=== PATIENT | female | born 1980 | race Caucasian/White ===

== ENCOUNTER 2017-02-06 16:55 | Emergency (ER) | payer OTHER ==
[2017-02-06 17:08] VITALS: BP 131/94
--- NOTE | 2017-02-06 17:18 | EDM.PDOC ---
ED HPI GENERAL MEDICAL PROBLEM - General Chief Complaint: Upper Extremity Injury/Pain Stated Complaint: R WRIST PAIN Time Seen by Provider: 02/06/17 17:14 Source of Information: Reports: Patient History Limitations: Reports: No Limitations - History of Present Illness INITIAL COMMENTS - FREE TEXT/NARRATIVE: Patient is a 37-year-old female who presents to the ED complaining of right wrist pain. Patient states pain has been persistent for the past month. Un clear what caused the discomfort. She denies any fall or traumatic event. She does note that she recently moved here from [place] to work at [employer]. She has a history of carpal tunnel syndrome and also fracture to the affected wrist 2 times. There is no swelling, increased redness, increased warmth, or bruising present. Pain is worsened with flexion extension of her wrist as well as flexion and extension of her thumb. No sensory deficits noted. No other complaints at this time. 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 [No Known Home Meds] 02/06/17 [History] Social & Family History - Tobacco Use Smoking Status *Q: Current Every Day Smoker Years of Tobacco use: 23 Packs/Tins Daily: 0.5 Used Tobacco, but Quit: No Second Hand Smoke Exposure: No - Caffeine Use Caffeine Use: Reports: Coffee, Energy Drinks, Soda, Tea - Recreational Drug Use Recreational Drug Use: No Review of Systems - Review of Systems Review Of Systems: ROS reveals no pertinent complaints other than HPI. ED EXAM, GENERAL - Physical Exam Exam: See Below Exam Limited By: No Limitations General Appearance: Alert, WD/WN, No Apparent Distress Ears: Hearing Grossly Normal Nose: Normal Inspection Throat/Mouth: Normal Voice, No Airway Compromise Neck: Normal Inspection, Supple Respiratory/Chest: No Respiratory Distress, No Accessory Muscle Use Cardiovascular: Normal Peripheral Pulses, Regular Rate, Rhythm Peripheral Pulses: 2+: Radial (R) Extremities: Other (On inspection of the right wrist: No increased swelling, redness, bony abdomen that is noted. Patient has decreased active range of motion including: Flexion-extension, internal/external rotation of the wrist, and flexion-extension of her thumb. With palpation pain is to the anatomical snuffbox and also dorsal aspect of her wrist. No sensory changes noted. No other complaints to the hand and forearm or elbow.) Course - Vital Signs Last Recorded V/S: Last Vital Signs Temp 98.5 F 02/06/17 17:06 Pulse 86 02/06/17 17:06 Resp 18 02/06/17 17:06 BP 131/94 H 02/06/17 17:06 Pulse Ox 99 02/06/17 17:06 - Orders/Labs/Meds Orders: Active Orders 24 hr Category Date Time Status Wrist Comp Min 3V Rt [CR] Stat Exams 02/06/17 17:14 Taken - Re-Assessments/Exams Free Text/Narrative Re-Assessment/Exam: X-ray of the right wrist obtained with no acute bony abnormalities noted. Reviewed with Dr. Newton. Final interpretation pending. Patient has de Quervain 's tenosynovitis. Searching for a wrist splint with thumb spica splint all connected. We'll discharge patient home with instructions as documented. 02/06/17 18:15 No splint able to be found. Will provide a picture of splint to be obtained at [facility] On Wednesday. Departure - Departure Time of Disposition: 17:52 Disposition: Home, Self-Care 01 Condition: Good Clinical Impression: Wrist pain, right, De Quervain's syndrome (tenosynovitis) - Discharge Information Instructions: Cast or Splint Care, [id number] Referrals: Jomar Herrera MD [Physician] - Forms: ED Department Discharge, ED Return to Work/School Form Additional Instructions: As discussed I believe you have what we call dequervains tenosynovitis. Treatment is symptomatic care including: splinting, ice, and ibuprofen/tylenol in alternating fashion for pain. Refrain from any activities that cause worsening pain. Go to [facility] Wednesday to purchase wrist splint and thumb splint combined. Picture provided. Wear splint at all times today unless bathing or washing your hands. Utilize landon wrap until splint is purchased. Followup with Dr. Herrera Orthopedic Surgeon this coming week for reevaluation and treatment. Return to the E.D. for any new or worsening symptoms. - My Orders Last 24 Hours: My Active Orders 02/06/17 17:14 Wrist Comp Min 3V Rt [CR] Stat - Assessment/Plan Last 24 Hours: My Active Orders 02/06/17 17:14 Wrist Comp Min 3V Rt [CR] Stat
--- NOTE | 2017-02-08 10:08 | CR ---
Right wrist: Four views of the right wrist were obtained. Comparison: No prior wrist exam. Joint spaces are maintained. No fracture, dislocation or other bony abnormality is seen. Impression: 1. Nothing acute is appreciated. Diagnostic code #1
== END 2017-02-06 18:25 | disposition home or self-care (01) ==
LOC: JD.ED 16:55
DX: E34.51 Complete androgen insensitivity syndrome (principal); F17.210 Nicotine dependence, cigarettes, uncomplicated; Z91.030 Bee allergy status; Z88.2 Allergy status to sulfonamides; Z88.1 Allergy status to other antibiotic agents
CPT/HCPCS: 73110-26-RT; 73110-RT; 99283

== ENCOUNTER 2017-03-19 18:28 | Emergency (ER) | payer OTHER ==
[2017-03-19 18:40] VITALS: BP 144/125
--- NOTE | 2017-03-19 20:09 | EDM.PDOC ---
ED HPI GENERAL MEDICAL PROBLEM - General Chief Complaint: Respiratory Problem Stated Complaint: [facility] Time Seen by Provider: 03/19/17 19:17 Source of Information: Reports: Patient History Limitations: Reports: No Limitations - History of Present Illness INITIAL COMMENTS - FREE TEXT/NARRATIVE: This is a 37-year-old female. Onset of right sided chest pain sharp in nature about 11:00 this morning. 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 The pain apparently got worse until this evening when she started to have severe sharp right sided chest pain. At times it seemed to go into her shoulder but never into her neck or jaw or down her arm. She really had no nausea vomiting no shortness of breath though she felt like she was short of breath because breathing would make the sharp pain worse. She did have a little bit of a cough this evening it was mildly productive but this is the first time she's been having any coughing. No fever no chills no nausea no vomiting. She has no history of cardiac disease. When I go into the room she is holding her right chest complaining of sharp chest pain especially when she breathes deep. She has no history of DVT and no recent episodes of sudden shortness of breath or sharp chest pain until today. She denies any swelling or pain in her lower extremities. Chest Pain Score (Numeric/FACES): 8 - Related Data Allergies Allergy/AdvReac Type Severity Reaction Status Date / Time bee venom protein (honey bee) Allergy Cardiac Verified 03/19/17 18:34 Arrest sulfamethoxazole Allergy Difficulty Verified 03/19/17 18:34 [From Bactrim] Breathing trimethoprim [From Bactrim] Allergy Difficulty Verified 03/19/17 18:34 Breathing Home Meds: Home Meds . 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: 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 History: Reports: Fracture, Fibromyalgia Neurological History: Reports: Other (See Below) Other Neuro History: fibromyalgia - Infectious Disease History Infectious Disease History: Reports: Chicken Pox - Past Surgical History Female Surgical History: Reports: Section, Hysterectomy 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 Surgical History: Reports: Carpal Tunnel Social & Family History - Tobacco Use Smoking Status *Q: Current Every Day Smoker Years of Tobacco use: 23 Packs/Tins Daily: 0.5 Used Tobacco, but Quit: No Second Hand Smoke Exposure: No - Caffeine Use Caffeine Use: Reports: Coffee, Soda - Recreational Drug Use Recreational Drug Use: Yes Drug Use in Last 12 Months: No Recreational Drug Type: Reports: Marijuana/Hashish ED ROS GENERAL - Review of Systems Review Of Systems: See Below Constitutional: Denies: Fever, Chills HEENT: Reports: No Symptoms Respiratory: Reports: Shortness of Breath, Pleuritic Chest Pain, Cough Cardiovascular: Reports: Chest Pain, Lightheadedness Endocrine: Reports: No Symptoms GI/Abdominal: Denies: Abdominal Pain, Diarrhea, Nausea, Vomiting : Reports: No Symptoms 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: Reports: No Symptoms Skin: Reports: No Symptoms Neurological: Reports: No Symptoms Psychiatric: Reports: Anxiety Hematologic/Lymphatic: Reports: No Symptoms Immunologic: Reports: No Symptoms ED EXAM, GENERAL - Physical Exam Exam: See Below Exam Limited By: No Limitations General Appearance: Alert, WD/WN, Moderate Distress Eye Exam: Bilateral Eye: Normal Inspection Ears: Normal External Exam Nose: Normal Inspection Throat/Mouth: Normal Inspection, Normal Lips, Normal Voice, No Airway Compromise Head: Normocephalic Neck: Supple Respiratory/Chest: Lungs Clear, Other (Any sort of increased respiration she has sharp pain in the costochondral junction on the right side and also into the pectoralis muscle, her lungs however have no crackles no rales no rhonchi, palpation of the costochondral joint on both sides causes extreme sharp pain and gives her quite the distress) Cardiovascular: Regular Rate, Rhythm, No Murmur GI/Abdominal: Soft, Non-Tender Back Exam: Full Range of Motion Extremities: Normal Inspection, Normal Range of Motion, Non-Tender, No Pedal Edema Neurological: Alert, Oriented Psychiatric: Anxious Skin Exam: Warm, Dry EKG INTERPRETATION EKG Date: 03/19/17 Time: 21:43 EKG Interpretation Comments: EKG showed a normal sinus rhythm rate of [address] there were [address] or T-wave changes and no ischemia noted Course - Vital Signs Last Recorded V/S: Last Vital Signs Temp 98.9 F 03/19/17 18:35 Pulse 134 H 03/19/17 18:35 Resp 16 03/19/17 18:35 BP 144/125 H 03/19/17 18:35 Pulse Ox 100 03/19/17 18:35 - Orders/Labs/Meds Orders: Active Orders 24 hr Category Date Time Status EKG 12 Lead [EKG Documentation Completion] [RC] STAT Care 03/19/17 21:18 Active Chest 2V [CR] Stat Exams 03/19/17 19:45 Taken Labs: Laboratory Tests 03/19/17 03/19/17 03/19/17 Range/Units 20:00 20:00 20:00 WBC 11.66 H (3.98-10.04) K/mm3 RBC 4.50 (3.98-5.22) M/mm3 Hgb 13.2 (11.2-15.7) gm/L Hct 40.1 (34.1-44.9) % MCV 89.1 (79.4-94.8) fl MCH 29.3 (25.6-32.2) pg MCHC 32.9 (32.2-35.5) g/dl RDW Std Deviation 43.9 (36.4-46.3) fL Plt Count 352 (182-369) K/mm3 MPV 9.7 (9.4-12.3) fl Neut % (Auto) 57.3 (34.0-71.1) % Lymph % (Auto) 36.9 (19.3-51.7) % [place] % (Auto) 4.8 (4.7-12.5) % Eos % (Auto) 0.4 L (0.7-5.8) Baso % (Auto) 0.3 (0.1-1.2) % Neut # (Auto) 6.68 H (1.56-6.13) K/mm3 Lymph # (Auto) 4.30 H (1.18-3.74) K/mm3 [place] # (Auto) 0.56 H (0.24-0.36) K/mm3 Eos # (Auto) 0.05 (0.04-0.36) K/mm3 Baso # (Auto) 0.03 (0.01-0.08) K/mm3 D-Dimer, Quantitative < 0.19 L (0.19-0.59) mg/L Sodium 142 (136-145) mEq/L Potassium 4.1 (3.5-5.1) mEq/L Chloride 104 (98-107) mEq/L Carbon Dioxide 28 (21-32) mEq/L Anion Gap 14.1 (5-15) BUN 15 (7-18) mg/dL Creatinine 0.8 (0.55-1.02) mg/dL Est Cr Clr Drug Dosing 89.26 mL/min Estimated GFR (MDRD) > 60 (>60) mL/min BUN/Creatinine Ratio 18.8 H (14-18) Glucose 93 (74-106) mg/dL Calcium 9.5 (8.5-10.1) mg/dL Total Bilirubin 0.5 (0.2-1.0) mg/dL AST 18 (15-37) U/L ALT 30 (14-59) U/L Alkaline Phosphatase 114 (46-116) U/L Troponin I < 0.017 (0.00-0.056) ng/mL Total Protein 7.8 (6.4-8.2) g/dl Albumin 4.0 (3.4-5.0) g/dl Globulin 3.8 gm/dL Albumin/Globulin Ratio 1.1 (1-2) - Re-Assessments/Exams Free Text/Narrative Re-Assessment/Exam: 03/19/17 21:19 I spoke to the patient regarding the d-dimer and troponin and chest x-ray as well as the lab work all being negative for any acute findings. I will do an EKG as a baseline to make certain were not missing anything. I discussed the process of costochondritis and what it means in which he need to do for it and that she is not to be doing any heavy lifting or any excessive arm movements is going to aggravate her chest wall. She does need to follow-up with her family doctor this week for recheck. Departure - Departure Time of Disposition: 21:48 Disposition: Home, Self-Care 01 Condition: Good Clinical Impression: Costochondritis, acute, Atypical chest pain - Discharge Information Referrals: PCP,None [Primary Care Provider] - Forms: ED Department Discharge, ED Return to Work/School Form Additional Instructions: Use heat to your chest as often as you need to help with the soreness, obtained some ibuprofen or Aleve to help with the sharp pain, avoid any sort of heavy lifting or use of that right arm such as scrubbing or sweeping since I will aggravate the symptoms, gentle activity for the next few days and remember this can flare up again especially if you doing any sort of heavy lifting or scrubbing, follow-up with your family doctor later this week for recheck or return to the ER if needed - My Orders Last 24 Hours: My Active Orders 03/19/17 19:45 Chest 2V [CR] Stat 03/19/17 21:18 EKG 12 Lead [EKG Documentation Completion] [RC] STAT - Assessment/Plan Last 24 Hours: My Active Orders 03/19/17 19:45 Chest 2V [CR] Stat 03/19/17 21:18 EKG 12 Lead [EKG Documentation Completion] [RC] STAT
--- NOTE | 2017-03-21 09:55 | CR ---
Chest: Two views of the chest were obtained. Comparison: No prior chest x-ray. Heart size and mediastinum are within normal limits. Slight linear density noted within the lingula compatible with scar or discoid atelectasis. Lungs otherwise are clear. Bony structures appear within normal limits. Impression: 1. Incidental finding. Nothing acute is identified on two-view chest x-ray. Diagnostic code #2
== END 2017-03-19 22:07 | disposition home or self-care (01) ==
LOC: JD.ED 18:28
DX: M94.0 Chondrocostal junction syndrome [Tietze] (principal); F17.210 Nicotine dependence, cigarettes, uncomplicated; Z88.2 Allergy status to sulfonamides; Z88.1 Allergy status to other antibiotic agents; Z91.030 Bee allergy status
CPT/HCPCS: 36415; 71020; 71020-26; 80053; 84484; 85025; 85379; 93005; 99284; 99284-25

== ENCOUNTER 2017-07-24 13:22 | Emergency (ER) | payer OTHER ==
[2017-07-24 13:50] VITALS: BP 134/99
--- NOTE | 2017-07-24 13:54 | EDM.PDOC ---
ED HPI GENERAL MEDICAL PROBLEM - General Chief Complaint: Upper Extremity Injury/Pain Stated Complaint: RIGHT ARM PAIN Time Seen by Provider: 07/24/17 13:47 Source of Information: Reports: Patient History Limitations: Reports: No Limitations - History of Present Illness INITIAL COMMENTS - FREE TEXT/NARRATIVE: The patient presents with right arm pain. This started about 3 months ago. She has pain to the leateral elbow. 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 She denies any specific injury. Sometimes she will have numbness and tingling into her fingers in her right hand. She has no other complaints. Onset: Gradual Duration: Week(s): (3 months) Location: Reports: Upper Extremity, Right (lateral elbow) Quality: Reports: Sharp Severity: Moderate Improves with: Reports: Immobilization Worsens with: Reports: Movement Associated Symptoms: Reports: No Other Symptoms Right Elbow Pain Score (Numeric/FACES): 3 - Related Data Allergies Allergy/AdvReac Type Severity Reaction Status Date / Time bee venom protein (honey bee) Allergy Cardiac Verified 03/19/17 18:34 Arrest sulfamethoxazole Allergy Difficulty Verified 03/19/17 18:34 [From Bactrim] Breathing trimethoprim [From Bactrim] Allergy Difficulty Verified 03/19/17 18:34 Breathing Home Meds: Home Meds . 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: 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 History: Reports: Fracture, Fibromyalgia Neurological History: Reports: Other (See Below) Other Neuro History: fibromyalgia - Infectious Disease History Infectious Disease History: Reports: Chicken Pox - Past Surgical History Female Surgical History: Reports: Section, Hysterectomy 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 Surgical History: Reports: Carpal Tunnel Social & Family History - Tobacco Use Smoking Status *Q: Current Every Day Smoker Years of Tobacco use: 23 Packs/Tins Daily: 0.5 Used Tobacco, but Quit: No Second Hand Smoke Exposure: No - Caffeine Use Caffeine Use: Reports: Coffee, Soda - Recreational Drug Use Recreational Drug Use: No Drug Use in Last 12 Months: No Recreational Drug Type: Reports: Marijuana/Hashish Review of Systems - Review of Systems Review Of Systems: See Below Constitutional: Reports: No Symptoms Eyes: Reports: No Symptoms Ears: Reports: No Symptoms Nose: Reports: No Symptoms Mouth/Throat: Reports: No Symptoms Respiratory: Reports: No Symptoms Cardiovascular: Reports: No Symptoms GI/Abdominal: Reports: No Symptoms Genitourinary: Reports: No Symptoms 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: Reports: Other (Right lateral elbow pain) ED EXAM, GENERAL - Physical Exam Exam: See Below Exam Limited By: No Limitations General Appearance: Alert, No Apparent Distress Ears: Normal External Exam Nose: Normal Inspection Throat/Mouth: Normal Inspection Head: Atraumatic, Normocephalic Neck: Normal Inspection Respiratory/Chest: No Respiratory Distress Extremities: Other (Pain upon palpation to the lateral elbow. Good sensation and pulses distally.) Course - Vital Signs Last Recorded V/S: Last Vital Signs Temp 97.4 F 07/24/17 13:44 Pulse 89 07/24/17 13:44 Resp 19 07/24/17 13:44 BP 134/99 H 07/24/17 13:44 Pulse Ox 99 07/24/17 13:44 Departure - Departure Time of Disposition: 14:00 Disposition: Home, Self-Care 01 Condition: Good Clinical Impression: Lateral epicondylitis of right elbow - Discharge Information Referrals: PCP,None [Primary Care Provider] - Forms: ED Department Discharge, ED Return to Work/School Form Additional Instructions: Try ice or heat to your arm which every feels better. Take motrin or aleve as needed for pain. Get a tennis elbow band to help with the pain. Follow up with physical therapy. Please return if you are worse.
== END 2017-07-24 14:20 | disposition home or self-care (01) ==
LOC: JD.ED 13:22
DX: M77.11 Lateral epicondylitis, right elbow (principal); F17.210 Nicotine dependence, cigarettes, uncomplicated; Z91.030 Bee allergy status; Z88.2 Allergy status to sulfonamides; Z88.1 Allergy status to other antibiotic agents
CPT/HCPCS: 99282; 99283

== ENCOUNTER 2017-09-26 12:44 | Emergency (ER) | payer OTHER ==
[2017-09-26 13:00] VITALS: BP 125/84
[2017-09-26] MEDS ORDERED: Acetaminophen/HYDROcodone 325-5 MG Tab PO ONE (13:09)
[2017-09-26] MEDS ORDERED: Ibuprofen 600 MG Tab PO ONE (13:10)
--- NOTE | 2017-09-26 13:16 | EDM.PDOC ---
ED HPI GENERAL MEDICAL PROBLEM - General Chief Complaint: Upper Extremity Injury/Pain Stated Complaint: RT ELBOW INJURY Time Seen by Provider: 09/26/17 13:05 Source of Information: Reports: Patient, RN Notes Reviewed - History of Present Illness INITIAL COMMENTS - FREE TEXT/NARRATIVE: 37-year-old female comes in with severe right elbow pain. She states she was lifting about a 10 pound case of food at work when she felt a "popping sensation of the right elbow and onset of severe pain lateral and anterior aspect of elbow. She has pain with motion of the elbow. There was no blow to the arm or elbow and she did not fall. She does have history of prior tennis elbow type problems. 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: 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 History: Reports: Fracture, Fibromyalgia Neurological History: Reports: Other (See Below) Other Neuro History: fibromyalgia - Infectious Disease History Infectious Disease History: Reports: Chicken Pox - Past Surgical History Female Surgical History: Reports: Section, Hysterectomy 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 Surgical History: Reports: Carpal Tunnel Social & Family History - Tobacco Use Smoking Status *Q: Current Every Day Smoker Years of Tobacco use: 10 Packs/Tins Daily: 0.5 Used Tobacco, but Quit: No Second Hand Smoke Exposure: No - Caffeine Use Caffeine Use: Reports: Coffee, Soda - Recreational Drug Use Recreational Drug Use: No Drug Use in Last 12 Months: No Recreational Drug Type: Reports: Marijuana/Hashish Review of Systems - Review of Systems Review Of Systems: See Below Constitutional: Reports: No Symptoms Respiratory: Denies: Shortness of Breath Cardiovascular: Denies: Chest Pain GI/Abdominal: Denies: Abdominal Pain, Nausea, Vomiting 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: Reports: Joint Pain (Right elbow) Skin: Reports: No Symptoms Neurological: Denies: Numbness, Tingling ED EXAM, GENERAL - Physical Exam Exam: See Below General Appearance: Alert, Moderate Distress Head: Atraumatic Neck: Supple Respiratory/Chest: No Respiratory Distress Extremities: Other (Moderate diffuse tenderness right elbow, no visible deformity, severe pain with motion, arm shoulder forearm hand and wrist all nontender.). No: Joint Swelling Neurological: No Motor/Sensory Deficits Skin Exam: Warm, Dry, Normal Color Course - Vital Signs Last Recorded V/S: Last Vital Signs Temp 98.4 F 09/26/17 12:57 Pulse 89 09/26/17 12:57 Resp 16 09/26/17 12:57 BP 125/84 09/26/17 12:57 Pulse Ox 96 09/26/17 12:57 - Orders/Labs/Meds Orders: Active Orders 24 hr Category Date Time Status Elbow Min 3V Rt [CR] Stat Exams 09/26/17 13:19 Taken Meds: Medications Discontinued Medications Generic Name Dose Route Start Last Admin Trade Name Iesha PRN Reason Stop Dose Admin Hydrocodone Bitart/Acetaminophen 1 tab 09/26/17 13:09 09/26/17 13:54 [place] 325-5 Mg PO 09/26/17 13:10 1 tab ONETIME ONE Administration Ibuprofen 600 mg 09/26/17 13:10 09/26/17 13:53 Motrin PO 09/26/17 13:11 600 mg ONETIME ONE Administration - Re-Assessments/Exams Free Text/Narrative Re-Assessment/Exam: 09/26/17 19:54. X-rays showed no fracture. Discharge instructions as documented Departure - Departure Time of Disposition: 14:31 Disposition: Home, Self-Care 01 Condition: Fair Clinical Impression: Elbow sprain Qualifiers: Encounter type: initial encounter Laterality: right Qualified Code(s): S53.401A - Unspecified sprain of right elbow, initial encounter - Discharge Information Referrals: PCP,None [Primary Care Provider] - Forms: ED Department Discharge, ED Return to Work/School Form Additional Instructions: Chuy wrap right elbow, right arm sling, continue with intermittent ice packs, rest arm and elbow, increase activity as tolerated, alternate Tylenol and ibuprofen for mild to moderate discomfort or you may take hydrocodone if needed for more severe pain. Don't take Tylenol and hydrocodone at the same time, do not drive when taking hydrocodone. Follow-up clinic if not much better within 4 -5 days as expected. - My Orders Last 24 Hours: My Active Orders 09/26/17 13:19 Elbow Min 3V Rt [CR] Stat - Assessment/Plan Last 24 Hours: My Active Orders 09/26/17 13:19 Elbow Min 3V Rt [CR] Stat
--- NOTE | 2017-09-27 08:18 | CR ---
Right elbow: Four views of the right elbow were obtained. Comparison: No prior study. Joint spaces are preserved. No joint effusion is seen. No fracture, dislocation or other bony abnormality is seen. Impression: 1. No abnormality is identified on right elbow study. Diagnostic code #1
== END 2017-09-26 14:54 | disposition home or self-care (01) ==
LOC: JD.ED 12:44
DX: S53.401A Unspecified sprain of right elbow, initial encounter (principal); F17.210 Nicotine dependence, cigarettes, uncomplicated; Z91.030 Bee allergy status; Z88.1 Allergy status to other antibiotic agents; X50.0XXA Overexertion from strenuous movement or load, initial encounter
CPT/HCPCS: 73080; 99283; A9270

== ENCOUNTER 2019-06-30 15:34 | Emergency (ER) | payer SELFPAY ==
[2019-06-30 16:00] VITALS: BP 148/104; PULSE 110
[2019-06-30] MEDS ORDERED: Ketorolac 60 MG/2 ML SDV IM ONE (16:23)
--- NOTE | 2019-06-30 16:28 | EDM.PDOC ---
ED HPI GENERAL MEDICAL PROBLEM - General Chief Complaint: Upper Extremity Injury/Pain Stated Complaint: SLIPPED ON ICE MULTIPLE INJURIES Time Seen by Provider: 06/30/19 15:59 Source of Information: Reports: Patient, RN Notes Reviewed History Limitations: Reports: No Limitations - History of Present Illness INITIAL COMMENTS - FREE TEXT/NARRATIVE: Patient is a 39-year-old female who presents to the ED for the evaluation of multiple injuries after slip and fall on the ice. Patient states that 8 AM this morning she was walking outside, when she slipped and fell on the ice. The patient states that she hit her head on the curb, but did not have any LOC. The patient states that she is having pain in her left wrist, with some swelling on the dorsal aspect of her wrist, with pain that radiates up to her left elbow, and minor swelling noted to the inside aspect of her left elbow, just above the joint. She notes she is right-hand dominant. She states she is also having pain into her tailbone, she cannot sit directly on her butt. She took 3 tabs of Tylenol at around noon today, this did not provide much pain relief. Patient states that she has a history of fibromyalgia, and has had a hysterectomy, so denies any chance of at this time. Patient is complaining of a mild headache, but no nausea or vomiting. Left Arm Pain Score (Numeric/FACES): 9 - Related Data Allergies Allergy/AdvReac Type Severity Reaction Status Date / Time bee venom protein (honey bee) Allergy Cardiac Verified 06/30/19 16:00 Arrest sulfamethoxazole Allergy Difficulty Verified 06/30/19 16:00 [From Bactrim] Breathing trimethoprim [From Bactrim] Allergy Difficulty Verified 06/30/19 16:00 Breathing Home Meds: Home Meds Fluticasone/Salmeterol [Advair 250-50] 1 puff INH BID 06/30/19 [History] Past Medical History HEENT History: Reports: Impaired Vision Respiratory History: Reports: Asthma, Bronchitis, Recurrent, Other (See Below) Other Respiratory History: lung nodules 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: 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 History: Reports: Fracture, Fibromyalgia - Infectious Disease History Infectious Disease History: Reports: Chicken Pox - Past Surgical History Female Surgical History: Reports: Section, Hysterectomy 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 Surgical History: Reports: Carpal Tunnel Social & Family History - Family History Family Medical History: Noncontributory - Tobacco Use Smoking Status *Q: Current Every Day Smoker Years of Tobacco use: 25 Packs/Tins Daily: 0.5 - Caffeine Use Caffeine Use: Reports: Coffee, Soda - Recreational Drug Use Recreational Drug Use: No Review of Systems - Review of Systems Review Of Systems: Comprehensive ROS is negative, except as noted in HPI. Respiratory: Denies: Shortness of Breath Cardiovascular: Denies: Chest Pain 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: Reports: Arm Pain (Left wrist, elbow), Back Pain (tailbone pain ), Joint Swelling (L dorsal wrist) Neurological: Reports: Headache (mild headache). Denies: Numbness, Tingling ED EXAM, GENERAL - Physical Exam Exam: See Below Exam Limited By: No Limitations General Appearance: Alert, WD/WN, No Apparent Distress Eye Exam: Bilateral Eye: EOMI, Normal Inspection, PERRL Ears: Normal External Exam, Normal Canal, Hearing Grossly Normal, Normal TMs Nose: Normal Inspection Throat/Mouth: Normal Inspection, Normal Lips, Normal Teeth, Normal Gums, Normal Oropharynx, Normal Voice, No Airway Compromise Head: Atraumatic, Normocephalic Neck: Normal Inspection Respiratory/Chest: No Respiratory Distress, Lungs Clear, Normal Breath Sounds, No Accessory Muscle Use, Chest Non-Tender Cardiovascular: Normal Peripheral Pulses, Regular Rate, Rhythm, No Murmur Peripheral Pulses: 3+: Radial (L), Radial (R), Dorsalis Pedis (L), Dorsalis Pedis (R) GI/Abdominal: Normal Bowel Sounds, Soft, Non-Tender, No Distention, No Mass Back Exam: Normal Inspection Extremities: Normal Inspection, Normal Capillary Refill, Limited Range of Motion (of L wrist, d/t pain, 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.) Neurological: Alert, Oriented, Normal Cognition, No Motor/Sensory Deficits Psychiatric: Normal Affect, Normal Mood Skin Exam: Warm, Dry, Intact, Normal Color, No Rash Course - Vital Signs Last Recorded V/S: Last Vital Signs Temp 98.2 F 06/30/19 15:57 Pulse 110 H 06/30/19 15:57 Resp 16 06/30/19 15:57 BP 148/104 H 06/30/19 15:57 Pulse Ox 97 06/30/19 15:57 - Orders/Labs/Meds Orders: Active Orders 24 hr Category Date Time Status Forearm 2V Lt [CR] Stat Exams 06/30/19 16:22 Ordered Wrist Comp Min 3V Lt [CR] Stat Exams 06/30/19 16:22 Ordered Meds: Medications Discontinued Medications Generic Name Dose Route Start Last Admin Trade Name Iesha PRN Reason Stop Dose Admin Ketorolac Tromethamine 60 mg 06/30/19 16:23 06/30/19 16:52 Toradol IM 06/30/19 16:24 60 mg ONETIME ONE Administration - Re-Assessments/Exams Free Text/Narrative Re-Assessment/Exam: 06/30/19 16:47 Patient presents to the ED for the evaluation of multiple injuries s/p fall on the ice. I have ordered L wrist/forearm x-ray and sacrum x-rays for further evaluation. I did order 60mg IM Toradol for initial pain management. 06/30/19 17:32 Patient sacrum x-ray is back, demonstrates no fracture or bony abnormalities. I did go over the wrist and forearm x-rays with Dr. Jones, and he cannot identify any fracture abnormalities as well. The radiology read is still pending on the wrist and forearm x-rays. I will likely send the patient home with a sling if she should desire, and possibly a wrist brace. Departure - Departure Time of Disposition: 17:33 Disposition: Home, Self-Care 01 Condition: Fair Clinical Impression: Sacral pain Fall Qualifiers: Encounter type: initial encounter Qualified Code(s): W19.XXXA - Unspecified fall, initial encounter Left wrist sprain Qualifiers: Encounter type: initial encounter Qualified Code(s): S63.502A - Unspecified sprain of left wrist, initial encounter - Discharge Information *PRESCRIPTION DRUG MONITORING PROGRAM REVIEWED*: No *COPY OF PRESCRIPTION DRUG MONITORING REPORT IN PATIENT SAMANTHA: No Instructions: Wrist Sprain, Adult Referrals: Rosie Goss PA-C [Primary Care Provider] - Forms: ED Department Discharge Additional Instructions: You have been evaluated in the ED for your injuries sustained after your slip on the ice. Your x-ray demonstrated no fracture or bony abnormality identified on your sacrum / coccyx x-rays, or any fracture or bony abnormality noted on your left wrist or left forearm x-rays. Please use ice as tolerated to the affected area. Please try to elevate the affected area to relieve swelling. You may take Tylenol 500 mg or ibuprofen 600mg q6 hrs for pain relief. Please do so until you have a tolerable level of pain with activity. Do not exceed 4000mg Tylenol or 3200mg ibuprofen in a 24 hour time period. You may want to obtain a donut type pillow to provide further sitting relief over the next few days, you can get this at any retail place like [facility] or other pharmacies. Please return to ED if your symptoms should change or worsen. Sepsis Event Note - Evaluation Sepsis Screening Result: No Definite Risk - Focused Exam Vital Signs: Vital Signs Temp Pulse Resp BP Pulse Ox 06/30/19 15:57 98.2 F 110 H 16 148/104 H 97 Date Exam was Performed: 06/30/19 Time Exam was Performed: 17:32 - My Orders Last 24 Hours: My Active Orders 06/30/19 16:22 Forearm 2V Lt [CR] Stat Wrist Comp Min 3V Lt [CR] Stat - Assessment/Plan Last 24 Hours: My Active Orders 06/30/19 16:22 Forearm 2V Lt [CR] Stat Wrist Comp Min 3V Lt [CR] Stat
--- NOTE | 2019-06-30 17:15 | CR ---
Sacrum and coccyx: 3 views of the sacrum and coccyx were obtained. Comparison: No previous sacrum or coccyx study. No fracture is appreciated. Sacroiliac joints are normal. Sacral foramina are patent. Impression: 1. No abnormality is appreciated on sacrum and coccyx study. Diagnostic code #1 This report was dictated in [place] Standard Time
--- NOTE | 2019-07-01 08:29 | CR ---
Left wrist: Four views of the left wrist were obtained. Comparison: No prior left wrist exam. Slight deformity is again noted within the distal radius most likely representing old healed fracture deformity. Minimal calcification is noted off the ulnar styloid process likely representing old injury. Joint spaces within the wrist are preserved. No acute fracture, acute dislocation or other abnormality is appreciated. Impression: 1. Old injury most likely present as described above. 2. Nothing acute is appreciated on left wrist exam. Diagnostic code #2 This report was dictated in [place] Standard Time
--- NOTE | 2019-07-01 08:29 | CR ---
Left forearm: Two views of the left forearm were obtained. Comparison: No prior left forearm study. Slight deformity of the distal radius is seen most likely representing old fracture deformity which appears healed. Small calcification is noted off the ulnar styloid process also felt compatible with old injury. No acute fracture or other abnormality is appreciated. Impression: 1. Probable old injury within the distal radius and ulnar styloid process. 2. Two-view left forearm study shows nothing acute. Diagnostic code #2 This report was dictated in [place] Standard Time
== END 2019-06-30 18:05 | disposition home or self-care (01) ==
LOC: JD.ED 15:34
DX: S63.502A Unspecified sprain of left wrist, initial encounter (principal); M53.3 Sacrococcygeal disorders, not elsewhere classified; R51 Headache; J45.909 Unspecified asthma, uncomplicated; F17.210 Nicotine dependence, cigarettes, uncomplicated; Z88.2 Allergy status to sulfonamides; Z88.1 Allergy status to other antibiotic agents; Z91.030 Bee allergy status; Z79.899 Other long term (current) drug therapy; Z90.710 Acquired absence of both cervix and uterus; W00.0XXA Fall on same level due to ice and snow, initial encounter
CPT/HCPCS: 72220; 73090; 73110; 96372; 99284; J1885; 99283

== ENCOUNTER 2021-01-28 12:08 | Emergency (ER) | payer BC, OTHER ==
[2021-01-28 12:24] VITALS: BP 140/86; PULSE 130
--- NOTE | 2021-01-28 13:48 | CR ---
Chest: Portable view of the chest was obtained. Comparison: No prior chest imaging is available. Slight density is seen within the right lung base. Lungs otherwise are clear. Heart size and mediastinum are normal. Bony structures show nothing acute. Impression: 1. Possible minimal pneumonia within the right lung base. Please correlate with patient's symptoms. Diagnostic code #3
--- NOTE | 2021-01-28 14:11 | EDM.PDOC ---
ED HPI GENERAL MEDICAL PROBLEM - General Chief Complaint: Respiratory Problem Stated Complaint: SOB AND COUGH TESTED NEG FOR COVID Time Seen by Provider: 01/28/21 12:26 Source of Information: Reports: Patient, RN Notes Reviewed History Limitations: Reports: No Limitations - History of Present Illness INITIAL COMMENTS - FREE TEXT/NARRATIVE: Patient is a 41-year-old female presenting to the emergency department complaints of a 1 week history of cough, shortness of breath, fever, diarrhea, and nasal congestion. She was tested for Covid on Wednesday of last week and this was found to be negative. She has had known contact with a Covid positive patient. She was on 40 mg of oral prednisone for 5 days with her last dose being completed on Wednesday. She does have a history of asthma for which she uses the Advair inhaler as well as albuterol rescue inhaler. Denies any chest pain. 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 - Related Data Allergies Allergy/AdvReac Type Severity Reaction Status Date / Time bee venom protein (honey bee) Allergy Cardiac Verified 01/28/21 12:18 Arrest sulfamethoxazole Allergy Difficulty Verified 01/28/21 12:18 [From Bactrim] Breathing trimethoprim [From Bactrim] Allergy Difficulty Verified 01/28/21 12:18 Breathing Home Meds: Home Meds Fluticasone/Salmeterol [Advair 250-50] 1 puff INH BID 06/30/19 [History] Past Medical History HEENT History: Reports: Impaired Vision Respiratory History: Reports: Asthma, Bronchitis, Recurrent, Other (See Below) Other Respiratory History: lung nodules 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: Reports: 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, Fibromyalgia Neurological History: Reports: Other (See Below) Other Neuro History: fibromyalgia Endocrine/Metabolic History: Reports: Obesity/BMI 30+ - Infectious Disease History Infectious Disease History: Reports: Chicken Pox, Novel Coronavirus - Past Surgical History Female Surgical History: Reports: Section, Hysterectomy 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 Surgical History: Reports: Carpal Tunnel Social & Family History - Family History Family Medical History: No Pertinent Family History - Tobacco Use Tobacco Use Status *Q: Current Every Day Tobacco User Years of Tobacco use: 25 Packs/Tins Daily: 0.2 - Caffeine Use Caffeine Use: Reports: Coffee - Recreational Drug Use Recreational Drug Use: No ED ROS GENERAL - Review of Systems Review Of Systems: See Below Constitutional: Reports: Fever, Chills, Fatigue HEENT: Reports: Sinus Problem Respiratory: Reports: Shortness of Breath, Wheezing, Cough Cardiovascular: Reports: No Symptoms Endocrine: Reports: No Symptoms GI/Abdominal: Reports: Diarrhea. Denies: Abdominal Pain, Vomiting : Reports: No Symptoms 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: Reports: No Symptoms Skin: Reports: No Symptoms Neurological: Reports: No Symptoms Psychiatric: Reports: No Symptoms Hematologic/Lymphatic: Reports: No Symptoms Immunologic: Reports: No Symptoms ED EXAM, GENERAL - Physical Exam Exam: See Below Exam Limited By: No Limitations General Appearance: Alert, WD/WN, No Apparent Distress Ear Exam: Bilateral Ear: TM normal Neck: Normal Inspection, Supple, Non-Tender, Full Range of Motion Respiratory/Chest: No Respiratory Distress, Lungs Clear, No Accessory Muscle Use, Chest Non-Tender, Other (Harsh cough elicited by deep breathing.) Cardiovascular: Normal Peripheral Pulses, Regular Rate, Rhythm, No Edema, No Gallop, No JVD, No Murmur, No Rub GI/Abdominal: Normal Bowel Sounds, Soft, Non-Tender, No Organomegaly, No Distention, No Abnormal Bruit, No Mass Neurological: Alert, Oriented, CN II-XII Intact, Normal Cognition, Normal Gait, Normal Reflexes, No Motor/Sensory Deficits Psychiatric: Normal Affect, Normal Mood Skin Exam: Warm (. ), Dry, Intact, Normal Color, No Rash Course - Vital Signs Last Recorded V/S: Last Vital Signs Temp 97.4 F 01/28/21 12:19 Pulse 130 H 01/28/21 12:19 Resp 16 01/28/21 12:19 BP 140/86 01/28/21 12:19 Pulse Ox 99 01/28/21 12:19 - Orders/Labs/Meds Labs: Laboratory Tests 01/28/21 01/28/21 01/28/21 Range/Units 12:27 12:45 12:45 WBC 10.31 H (3.98-10.04) K/mm3 RBC 5.20 (3.98-5.22) M/mm3 Hgb 15.1 D (11.2-15.7) gm/dl Hct 46.7 H (34.1-44.9) % MCV 89.8 (79.4-94.8) fl MCH 29.0 (25.6-32.2) pg MCHC 32.3 (32.2-35.5) g/dl RDW Std Deviation 47.0 H (36.4-46.3) fL Plt Count 328 (182-369) K/mm3 MPV 9.5 (9.4-12.3) fl Neut % (Auto) 58.1 (34.0-71.1) % Lymph % (Auto) 35.3 (19.3-51.7) % [place] % (Auto) 5.6 (4.7-12.5) % Eos % (Auto) 0.3 L (0.7-5.8) Baso % (Auto) 0.3 (0.1-1.2) % Neut # (Auto) 5.99 (1.56-6.13) K/mm3 Lymph # (Auto) 3.64 (1.18-3.74) K/mm3 [place] # (Auto) 0.58 H (0.24-0.36) K/mm3 Eos # (Auto) 0.03 L (0.04-0.36) K/mm3 Baso # (Auto) 0.03 (0.01-0.08) K/mm3 Sodium 141 (136-145) mEq/L Potassium 4.4 (3.5-5.1) mEq/L Chloride 103 (98-107) mEq/L Carbon Dioxide 28 (21-32) mEq/L Anion Gap 14.4 (5-15) BUN 12 (7-18) mg/dL Creatinine 0.9 (0.55-1.02) mg/dL Est Cr Clr Drug Dosing 76.23 mL/min Estimated GFR (MDRD) > 60 (>60) mL/min BUN/Creatinine Ratio 13.3 L (14-18) Glucose 95 (70-99) mg/dL Calcium 8.9 (8.5-10.1) mg/dL Total Bilirubin 0.3 (0.2-1.0) mg/dL AST 27 (15-37) U/L ALT 56 (14-59) U/L Alkaline Phosphatase 117 H (46-116) U/L Total Protein 8.1 (6.4-8.2) g/dl Albumin 3.9 (3.4-5.0) g/dl Globulin 4.2 gm/dL Albumin/Globulin Ratio 0.9 L (1-2) SARS-CoV-2 RNA (RODRIGUEZ) Positive H (NEGATIVE) - Re-Assessments/Exams Free Text/Narrative Re-Assessment/Exam: Patient is a 41-year-old female presenting to the emergency department with complaints of cough, shortness of breath, fever, chills, diarrhea, and nasal congestion for the last week. She was tested for Covid on Wednesday was found to be negative. On exam, she has a very faint expiratory wheeze throughout her lung li. Deep breathing elicits a harsh cough. Oxygen saturations were 96 to 98% on room air. Initial heart rate was 130, however by the time I examined had come down to 105. Symptoms are concerning for COVID-19 diagnosis. She has had a known contact with Covid positive patient. I ordered blood work, chest x- ray, and Covid/flu testing. 01/28/21 14:13 Hematology was significant for WBC minimally elevated at 10.3. Covid was positive. Influenza negative. Chest x-ray shows possible minimal pneumonia within the right lung base. Discussed with patient possible of monoclonal antibodies, however she states that her son is in the car and she does not have time to do this now. Advised that she may follow-up with her primary to get outpatient orders for infusion should she decide of this. We will send her home with a pulse oximeter to monitor her oxygen saturations. She is already completed a course of prednisone, therefore I will not start her on dexamethasone. Discussed return precautions. Discharge instructions as documented. Departure - Departure Time of Disposition: 14:14 Disposition: Home, Self-Care 01 Condition: Good Clinical Impression: COVID-19 - Discharge Information *PRESCRIPTION DRUG MONITORING PROGRAM REVIEWED*: No *COPY OF PRESCRIPTION DRUG MONITORING REPORT IN PATIENT SAMANTHA: No Instructions: COVID-19 Referrals: Rosie Goss PA-C [Primary Care Provider] - Forms: ED Department Discharge Additional Instructions: You were seen in the emergency department today for 1 week history of cough, shortness of breath, fever, chills, diarrhea, and nasal congestion. Results of your work-up show that you are Covid positive. You have very minimal signs of possible Covid pneumonia. You have been sent home with a pulse oximeter. Recommend they check your oxygen saturations intermittently throughout the day. If you are maintaining an oxygen saturation below 90%, you should return to the emergency department. If you should choose to proceed with monoclonal antibody treatment, recommend visiting with your primary care provider to receive outpatient orders for infusion. This can only be done up to 10 days from the onset of your illness. If you experience any new or worsening symptoms, please not hesitate to return to the emergency department for reevaluation. Sepsis Event Note (ED) - Evaluation Sepsis Screening Result: Possible Sepsis Risk - Focused Exam Vital Signs: Vital Signs Temp Pulse Resp BP Pulse Ox 01/28/21 12:19 97.4 F 130 H 16 140/86 99
== END 2021-01-28 14:28 | disposition home or self-care (01) ==
LOC: JD.ED 12:08
DX: U07.1 COVID-19 (principal); E66.9 Obesity, unspecified; Z68.37 Body mass index [BMI] 37.0-37.9, adult; Z72.0 Tobacco use; Z91.030 Bee allergy status; Z88.2 Allergy status to sulfonamides
CPT/HCPCS: 36415; 71045; 71045-26; 80053; 85025; 87804; 99283; 99285-25; U0002

== ENCOUNTER 2021-04-14 19:37 | Emergency (ER) | payer SELFPAY ==
[2021-04-14 20:29] VITALS: BP 128/83; PULSE 90
[2021-04-14] MEDS ORDERED: Acetaminophen 325 MG Tab PO ONE (21:11)
--- NOTE | 2021-04-14 21:56 | EDM.PDOC ---
ED HPI GENERAL MEDICAL PROBLEM - General Chief Complaint: Lower Extremity Injury/Pain Stated Complaint: SWOLLEN RT FOOT/PAIN Time Seen by Provider: 04/14/21 20:57 Source of Information: Reports: Patient History Limitations: Reports: No Limitations - History of Present Illness INITIAL COMMENTS - FREE TEXT/NARRATIVE: 41-year-old female presents the emergency department today after injuring her right foot last evening. She states she is walking in the kitchen and she stubbed her right foot. She states she woke up this morning with increased pain, swelling and bruising noted on the dorsal aspect of the right foot just proximal the toes over second third and fourth digit. She does have positive sensation and movement of toes. Pedal pulses are palpable. She states she has tried elevation and ice application while at work today and has not had any relief. She states she has also been alternating Tylenol and ibuprofen without relief. Right Feet Pain Score (Numeric/FACES): 5 - Related Data Allergies Allergy/AdvReac Type Severity Reaction Status Date / Time bee venom protein (honey bee) Allergy Cardiac Verified 04/14/21 20:24 Arrest sulfamethoxazole Allergy Difficulty Verified 04/14/21 20:24 [From Bactrim] Breathing trimethoprim [From Bactrim] Allergy Difficulty Verified 04/14/21 20:24 Breathing Home Meds: Home Meds Fluticasone/Salmeterol [Advair 250-50] 1 puff INH DAILY 06/30/19 [History] Past Medical History HEENT History: Reports: Impaired Vision Respiratory History: Reports: Asthma, Bronchitis, Recurrent, Other (See Below) Other Respiratory History: lung nodules [employer] History: Reports: 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 History: Reports: Fracture, Fibromyalgia Neurological History: Reports: Other (See Below) Other Neuro History: fibromyalgia Endocrine/Metabolic History: Reports: Obesity/BMI 30+ - Infectious Disease History Infectious Disease History: Reports: Chicken Pox, Novel Coronavirus - Past Surgical History Female Surgical History: Reports: Section, Hysterectomy Social & Family History - Family History Family Medical History: No Pertinent Family History - Tobacco Use Tobacco Use Status *Q: Current Every Day Tobacco User Years of Tobacco use: 25 Packs/Tins Daily: 0.5 - Caffeine Use Caffeine Use: Reports: Coffee, Soda - Recreational Drug Use Recreational Drug Use: No Review of Systems - Review of Systems Review Of Systems: Comprehensive ROS is negative, except as noted in HPI. ED EXAM, GENERAL - Physical Exam Exam: See Below Exam Limited By: No Limitations General Appearance: Alert, WD/WN, Mild Distress Ears: Normal External Exam, Hearing Grossly Normal Nose: Normal Inspection Throat/Mouth: Normal Inspection, Normal Lips, Normal Voice, No Airway Compromise Head: Atraumatic, Normocephalic Neck: Normal Inspection, Supple Respiratory/Chest: No Respiratory Distress, No Accessory Muscle Use Cardiovascular: Normal Peripheral Pulses, Regular Rate, Rhythm. No: No Edema (Edema noted to the dorsal aspect of her right foot) Peripheral Pulses: 2+: Dorsalis Pedis (L), Dorsalis Pedis (R) GI/Abdominal: No Distention (Female) Exam: Deferred Rectal (Female) Exam: Deferred Back Exam: Normal Inspection Extremities: Pedal Edema (Right foot). No: Normal Inspection (Patient has swelling and bruising noted to dorsal aspect of right foot just proximal second third and fourth toes.) Neurological: Alert, Oriented, Normal Cognition Psychiatric: Normal Affect, Normal Mood Skin Exam: Warm, Dry, Intact, No Rash, Ecchymosis (Dorsal aspect of right foot) Lymphatic: No Adenopathy Course - Vital Signs Text/Narrative:: As stated above, patient presents with injury to the right foot. Physical exam reveals swelling and bruising noted to the dorsal aspect of right foot just proximal to toes on the second third and fourth digits. Area is painful to minimal palpation. CMS is intact. Patient is able to wiggle her toes. Will obtain x-rays of the right foot. Patient states she took ibuprofen at approximately 6:00 this evening and it has not seemed to help. Will medicate the patient with 975 mg of Tylenol. Last Recorded V/S: Last Vital Signs Temp 97.3 F 04/14/21 20:20 Pulse 90 04/14/21 20:20 Resp 16 04/14/21 20:20 BP 128/83 04/14/21 20:20 Pulse Ox 97 04/14/21 20:20 - Orders/Labs/Meds Orders: Active Orders 24 hr Category Date Time Status Foot Comp Min 3V Rt [CR] Stat Exams 04/14/21 21:08 Taken Meds: Medications Discontinued Medications Generic Name Dose Route Start Last Admin Trade Name Freq PRN Reason Stop Dose Admin Acetaminophen 975 mg 04/14/21 21:11 04/14/21 21:18 Acetaminophen 325 Mg Tab PO 04/14/21 21:12 975 mg NOW ONE Administration - Re-Assessments/Exams Free Text/Narrative Re-Assessment/Exam: 04/14/21 21:59 Xray of right foot were reviewed by myself and Dr. Mendez and no acute fracture is appreciated. Patient will be discharged home with a walking boot to prevent further injury or pain. Recommend she follow-up for reevaluation in about a week if it is not better. Departure - Departure Time of Disposition: 22:02 Disposition: Home, Self-Care 01 Condition: Good Clinical Impression: Injury of right foot including toes Qualifiers: Encounter type: initial encounter Qualified Code(s): S99.921A - Unspecified injury of right foot, initial encounter - Discharge Information Instructions: Pain Medicine Instructions, [id number] Referrals: Rosie Goss PA-C [Primary Care Provider] - Additional Instructions: You were seen in the emergency department for an injury to your right foot that occurred last evening. X-rays were completed and there does not appear to be any acute fractures noted. Recommend alternating Tylenol 650 mg with ibuprofen 600 mg every 4 hours for the next 48 hours and then as needed thereafter. Recommend elevation as much as possible. Ice 30 minutes at a time every 3 hours while awake. Use the walking boot during the day and keep the foot elevated at night. If you are still having significant discomfort in about a week recommend reevaluation. Sepsis Event Note (ED) - Evaluation Sepsis Screening Result: No Definite Risk - Focused Exam Vital Signs: Vital Signs Temp Pulse Resp BP Pulse Ox 04/14/21 20:20 97.3 F 90 16 128/83 97 - My Orders Last 24 Hours: My Active Orders 04/14/21 21:08 Foot Comp Min 3V Rt [CR] Stat - Assessment/Plan Last 24 Hours: My Active Orders 04/14/21 21:08 Foot Comp Min 3V Rt [CR] Stat
--- NOTE | 2021-04-15 06:06 | CR ---
Right foot: 4 views of the right foot were obtained. Comparison: No prior foot exam is available. No fracture, dislocation or other bony abnormality is seen. Impression: 1. Nothing acute is seen on right foot exam. Diagnostic code #1
== END 2021-04-14 22:45 | disposition home or self-care (01) ==
LOC: JD.ED 19:37
DX: S90.31XA Contusion of right foot, initial encounter (principal); R60.0 Localized edema; E66.9 Obesity, unspecified; Z91.030 Bee allergy status; Z88.1 Allergy status to other antibiotic agents; Z72.0 Tobacco use; Z68.39 Body mass index [BMI] 39.0-39.9, adult; W22.09XA Striking against other stationary object, initial encounter; Y92.000 Kitchen of unspecified non-institutional (private) residence as the place of occurrence of the external cause
CPT/HCPCS: 73630; 99283; A9270